=== PATIENT | male | born 1970 | race Hispanic/Latino ===

== ENCOUNTER 2018-04-16 03:55 | Observation (INO) | payer SELFPAY ==
[2018-04-16] MEDS ORDERED: Lidocaine Viscous Sol 2% 15 ml UD Cup ONE ×2 (04:37→05:49)
[2018-04-16 04:47] LABS: Bilirubin Negative (Negative); Blood, Urine Large (Negative); Glucose, Urine (Dipstick) >=1000 mg/dL (Negative); Leukocyte Negative (Negative); Nitrite Negative (Negative); Protein, Urine (Dipstick) 100 mg/dL (Neg-Trace); Specific Gravity, Urine 1.025 (1.005-1.030); Urobilinogen 0.2 mg/dL (0.2-1.0)
[2018-04-16] MEDS ORDERED: Morphine 4 MG/ML VIAL ONE ×2 (04:56→05:42)
[2018-04-16 05:05] LABS: Clarity Turbid (Clear)
[2018-04-16 05:11] LABS: Bacteria/HPF Rare-Few HPF (None Seen); RBC/HPF GREATER THAN 50-TNTC HPF (0-3); Squamous Epithelial 0-3 HPF (0-3); WBC/HPF 0-3 HPF (0-3)
[2018-04-16 05:25] LABS: #Basophils 0.1 thou/uL (0.0-0.2); #Eosinphils 0.2 thou/uL (0.0-0.7); #Lymphocytes 2.2 thou/uL (1.20-3.40); #Monocytes 0.8 thou/uL (0.11-0.59); #Neutrophils 8.5 thou/uL (1.40-6.50); %Basophils 0.5 % (0.0-1.0); %Eosinophils 1.3 % (0.0-10.0); %Lymphocytes 18.8 % (21.0-51.0); %Monocytes 7.1 % (0.0-10.0); %Neutrophils 72.4 % (42.0-75.0); Hemoglobin 15.4 g/dL (14.0-18.0); Mean Corpuscular HGB CONC 34.4 g/dL (32.0-36.0); Mean Corpuscular Hemoglobin 28.3 pg (27.0-31.0); Mean Corpuscular Volume 82.3 fL (78.0-98.0); Platelet Count 226 thou/uL (130-400); RBC Distribution Width 11.8 % (11.5-14.5); Red Blood Cell (RBC) Count 5.46 mill/uL (4.70-6.10); White Blood Cell (WBC) Count 11.8 thou/uL (4.8-10.8)
[2018-04-16 05:29] LABS: PTT 26.8 SEC (22.9-36.1); Prothrombin Time 13.5 SEC (12.0-14.7)
[2018-04-16] MEDS ORDERED: Ondansetron PF 4 MG/2 ML Vial ONE (05:42)
[2018-04-16 05:44] LABS: ALT (SGPT) 36 U/L (8-55); AST (SGOT) 14 U/L (5-34); Albumin 3.9 g/dL (3.5-5.0); Alkaline Phosphatase 113 U/L (40-150); Anion Gap 16 mmol/L (10-20); BUN (Urea Nitrogen) 11 mg/dL (8.9-20.6); Bilirubin, Total 0.9 mg/dL (0.2-1.2); Calc. Creatinine Clearance 0 mL/min (70-130); Calcium 9.1 mg/dL (7.8-10.44); Carbon Dioxide 24 mmol/L (22-29); Chloride 99 mmol/L (98-107); Estimated GFR-MDRD 77; Globulin 3.4 g/dL (2.4-3.5); Glucose 392 mg/dL (70-105); Potassium 3.6 mmol/L (3.5-5.1); Protein, Total 7.3 g/dL (6.0-8.3); Sodium 135 mmol/L (136-145)
[2018-04-16] MEDS ORDERED: Mag-Al 1200 mg/1200 mg/30 ML UDCUP ONE (05:49)
[2018-04-16] MEDS ORDERED: Milk Of Magnesia 30 ML UDCUP PO PRN (07:16)
[2018-04-16] MEDS ORDERED: diphenhydrAMINE 50 MG in Sodium Chloride 0.9% 50 ML IVPB PRN (07:16)
[2018-04-16] MEDS ORDERED: Bisacodyl 10 MG SUPP PR PRN (07:16)
[2018-04-16] MEDS ORDERED: Metoclopramide HCl 10 MG/2 ML VIAL IVP PRN (07:16)
[2018-04-16] MEDS ORDERED: Acetaminophen 500 MG TAB PO PRN (07:16)
[2018-04-16] MEDS ORDERED: HumaLOG 300 UNITS/3 ML VIAL SC PRN (07:18)
[2018-04-16] MEDS ORDERED: Dextrose 5% in Water 1,000 ML IV PRN (07:18)
[2018-04-16] MEDS ORDERED: Dextrose 50% Abboject 50 ML SYRINGE SLOW IVP PRN (07:18)
[2018-04-16] MEDS ORDERED: Ondansetron PF 4 MG/2 ML Vial IVP PRN (08:19)
[2018-04-16] MEDS ORDERED: Ondansetron ODT 4 MG TAB SL PRN (08:19)
[2018-04-16] MEDS ORDERED: Morphine 2 MG/ML SYRINGE SLOW IVP PRN (08:21)
[2018-04-16 08:44] VITALS: BMI 34.1
[2018-04-16] MEDS: B & O 30 MG SUPP PR PRN ×2 (08:50→14:50)
[2018-04-16] MEDS: Heparin 5,000 UNITS/ML VIAL SC SCH ×3 (08:53→20:15)
[2018-04-16] MEDS: Tamsulosin HCl 0.4 MG CAP PO SCH (08:53)
[2018-04-16] MEDS: Famotidine/PF 20 mg/2ml Vial SLOW IVP SCH ×2 (08:53→20:15)
[2018-04-16] MEDS: Docusate 100 MG CAP PO SCH ×2 (08:54→20:14)
[2018-04-16] MEDS: Finasteride 5 MG TAB PO SCH (08:54)
--- NOTE | 2018-04-16 09:18 | HP ---
DATE OF SERVICE: 04/16/2018 HISTORY OF PRESENT ILLNESS: The patient is a 48-year-old male who was in his otherwise usual state of health who woke up at 3 in the morning, was unable to void except a very small amount of red urine. He had this 7 years ago in a similar fashion and was seen by urologist and had cystoscopy and he was just told it was from the bladder, but he has never had trouble with it again. The ER placed a catheter and initially was concerned it wasn't draining. They placed another. At some point they documented 910mL urine out and hand irrigated his bladder for clot. Normally, he has frequency q.4h, and nocturia x1 to 2. He denies any lower urinary tract symptoms to include hesitancy, incomplete emptying, straining, but does admit to urgency if he has to hold it. Otherwise, he has never had urinary tract infections, stones or leakage of urine. PAST MEDICAL HISTORY: Allergy induced asthma, although he likely also has diabetes. PAST SURGICAL HISTORY: L2-3 fusion and appendectomy. MEDICATIONS: None except he uses inhaler periodically. Last time he used it was last month. ALLERGIES: None. SOCIAL HISTORY: He has a 2 pack a day history x12 years, but quit in 2013. He does not drink or use drugs. He lives at home with his partner. 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 He exercises via his work. REVIEW OF SYSTEMS: Reveals he had a colonoscopy in 2002 after a 31-year-old friend of his from colon cancer and that was normal. REVIEW OF SYSTEMS: He has no chest pain, no shortness of breath, no cough. No numbness or tingling. No fever, chills, nausea or vomiting. No diarrhea or constipation. He denies any trauma or significant straining recently other than with cheering for a football team. FAMILY HISTORY: Significant for mother, brother, and dad having diabetes. His dad actually at 49 of complications of diabetes. Mother is alive and otherwise okay. No history of cancer in either of them. He has not been screened for prostate cancer with a PSA nor GUS that he is aware. PHYSICAL EXAMINATION: GENERAL: He is comfortable in the bed. VITAL SIGNS: T-max 99.3. He was hypertensive 189/123 with a heart rate of 103 when he came in. Then, his last blood pressure was 137/79 with a heart rate of 84. Neck: He had no obvious JVD. HEENT: No scleral icterus. SKIN: He had multiple tattoos noted. He had no diaphoresis. CARDIOVASCULAR: Regular rate and rhythm. No murmurs, gallops or rubs. RESPIRATORY: Lungs are clear to auscultation bilaterally. ABDOMEN: Soft, nondistended, nontender with normoactive bowel sounds. EXTREMITIES: No lower extremity edema. GENITOURINARY: Testes were descended bilaterally without masses. Phallus was circumcised with a small amount of excess foreskin covering the theodore but not the glans. This is normally how it is for him. He has a 3-way catheter, secured with a piece of tape and the third port not even plugged nor hooked up to CBI. At this point, I attempted hand irrigation and it just resulted in significant spasm and discomfort to the patient. I took down the balloon to some degree as it seemingly had 30 mL and I left it with about 15mL. I was still unable to get any significant clot as I think they had successfully already removed all of the clot in the ER as the catheter had been draining only pink-tinged urine withOUT CBI when I walked in. At this point, I hooked it up to CBI just to make sure, and it had a slow drip going. It was clear. LABORATORY DATA: Reveal a normal CBC, BUN and creatinine 11 and 1.03, glucose of 392, which the ER did not communicate to me. Urinalysis with 0-3 WBCs, too numerous to count RBCs, rare bacteria and 0-3 squamous cells. There is no upper tract imaging. ASSESSMENT AND PLAN: We have a 48-year-old male, probably with undiagnosed diabetes that will need follow up regarding this and we will consult primary care if he does indeed have diabetes. He was admitted with gross hematuria. He seems to have had his clot cleared, but does deserve upper tract imaging. We will continue with CBI for the next couple hours, but can anticipate stopping it. Hopefully once off, we can get the catheter out. We will check further glucoses and a hemoglobin A1c as well as another H&H. I ordered a CT scan to check his upper tracts. MARIO
[2018-04-16] MEDS ORDERED: ISOVUE-370 76%-LOCM 1 ML ONE (10:41)
--- NOTE | 2018-04-16 10:50 | CT ---
CT ABDOMEN AND PELVIS WITH AND WITHOUT CONTRAST: HISTORY: Assess function. Hematuria. COMPARISON: None. FINDINGS: There are some atelectatic changes right lung base. No pericardial effusion. On noncontrast portion of the examination, there is no nephroureterolithiasis or hydroureteral nephro sis. No secondary evidence of a recently passed stone. There is what appears to be a focal area of ectopic cortex in the renal pelvis. No abnormal enhancing renal mass. On the delayed phase of contrast, there are no filling defects in the renal calyces, pelvi, nor urete rs. The urinary bladder posterior wall does not have an abnormal filling defect. Morris catheter is in good position. No retroperitoneal adenopathy. Aortoiliac contour is nonaneurys mal. No dilated loops of large or small bowel. Normal proximal small bowel rotation. Mild fatty atrophy of the pancreatic body. Soft tissue granuloma of the right flank. Moderate degenerative disk space disease lower lumbar spin e. IMPRESSION: 1. No nephroureterolithiasis or hydroureteral nephrosis. No secondary evidence of recently passed s tone. 2. No findings to explain the patient's hematuria. POS: [facility]
[2018-04-16 11:26] LABS: Hemoglobin 14.2 g/dL (14.0-18.0)
[2018-04-16 11:28] LABS: Hemoglobin A1c 15.3 % (4.0-6.0)
[2018-04-16] MEDS ORDERED: Insulin Regular 300 UNITS/3 ML VIAL SC PRN (12:38)
[2018-04-16] MEDS ORDERED: Insulin NPH/Reg Insulin Hm 300 UNITS/3 ML VIAL SC SCH ×3 (13:45→17:00)
[2018-04-16] MEDS: metFORMIN 500 MG TAB PO SCH (17:05)
[2018-04-16] MEDS: Insulin Regular 300 UNITS/3 ML VIAL SC PRN (17:06)
--- NOTE | 2018-04-16 20:18 | CON-2 ---
DATE OF CONSULTATION: 04/16/2018 CONSULTING PHYSICIAN: Magali Perera. NEUROLOGY ATTENDING: Dr. Ryan Roldan. HISTORY OF PRESENT ILLNESS: Patient is a 48-year-old male who presented to the ED early this morning with acute onset of hematuria around 3: 00 a.m. He is being worked up by Dr. Perera for hematuria causes. On initial lab evaluation, he was found to have blood glucose of 392. Since then blood sugars are really have been 384-324. He reports recent vision changes, increased thirst, polyuria, urgency and frequency. He has no known PCP and has last seen a physician 3 years ago in which he reports he was never told to have elevated blood sugars before. In regards to his hematuria, this has happened once before several years ago. In the ED, the clot was removed and he is currently on continuous bladder irrigation this morning with pink-tinged urine. REVIEW OF SYSTEMS: Ten point review of systems is performed and found to be negative other than those described in the HPI. PAST MEDICAL HISTORY: Asthma. PAST SURGICAL HISTORY: Back surgery, appendectomy and colonoscopy 2 years prior. FAMILY HISTORY: Significant for diabetes in brother, sister, father and mother , and hypertension in his mother. MEDICATIONS: Patient occasionally uses albuterol inhaler, mostly when the weather changes. SOCIAL HISTORY: Patient reports 2 packs per day for 12 years, but quit 4 years ago, used to drink occasionally, but has since quit. Denies drug use altogether. ALLERGIES: Denies any known allergies. PHYSICAL EXAMINATION: VITAL SIGNS: Temperature 98.0, pulse 84, respiratory rate 16, O2 sats 94% on room air, blood pressure 137/88. GENERAL: no acute distress, obese HEENT: moist MM, EOMI HEART: RRR without murmurs or extra sounds LUNGS: Clear to auscultation bilaterally : vergara in place with clear urine EXTREMITIES: no edema or cyanosis SKIN: no wounds LABORATORY DATA: As discussed in HPI, significant for chem panel with sodium 135, potassium 3.6, chloride 99, carbon dioxide 24, anion gap 16, BUN 11, creatinine 1.03 and GFR of glucose 392 and subsequent blood sugars have been 384 and 324 after 6 units of Humalog. A1c was ordered and is 15.3. Urine study shows regular urine with 100 protein, greater than 1000 glucose, trace ketones, large blood, negative nitrites, negative leukocyte esterase, and greater than 50 red blood cells. IMAGING DATA: Abdomen and pelvis CT was performed. Denies any evidence of stone. No hydro-ureterolithiasis. No secondary evidence of kidney stone but a focal area of ectopic quadrant in the right renal pelvis. ASSESSMENT AND PLAN: 1. Hematuria. We will defer workup to Urology on continuous bladder irrigation currently being managed with finasteride, heparin, and Flomax. 2. Diabetes mellitus, history consistent with type 2, new onset. Patient has no insurance. We will start insulin regimen with 70/30 insulin, given 15 units b.i.d. and aggressive sliding scale. We will titrate up from there. We will also start him on metformin 500 mg b.i.d. We will consult dietitian for education on diabetic diet and risk stratify with fasting lipid panel in the morning. Accu-Cheks and hypoglycemia protocol in place. 3. Chronic kidney disease 2 versus acute kidney injury. We will continue to monitor with BMPs. MTDD
[2018-04-17] MEDS: B & O PR PRN (00:49)
[2018-04-17 05:03] LABS: Cardiac Risk 8.6 (Less than 4.5)
[2018-04-17] MEDS: Insulin Regular 300 UNITS/3 ML VIAL SC PRN (06:31)
[2018-04-17] MEDS ORDERED: Insulin NPH/Reg Insulin Hm 300 UNITS/3 ML VIAL SC SCH (07:30)
[2018-04-17] MEDS: Tamsulosin HCl 0.4 MG CAP PO SCH (08:57)
[2018-04-17] MEDS: Finasteride 5 MG TAB PO SCH (08:57)
[2018-04-17] MEDS: metFORMIN 500 MG TAB PO SCH (08:57)
--- NOTE | 2018-04-17 08:57 | PDOC.FM ---
- Subjective Subjective: Patient doing well this am. CBI was stopped yesterday and patient is voiding without difficulty and urine is clear. He still reports suprapubic tenderness. He denies any pain with urination, hesitancy, and urgency. In regard to new diabetes diagnosis, he is motivated to make changes to his diet and be compliant with medications in hopes of getting off insulin. He denies CP, sob, n/v/c/d. - Objective MAR Reviewed: Yes Vital Signs & Weight: Vital Signs (12 hours) Temp Pulse Resp BP Pulse Ox 04/17/18 07:10 97.9 F 67 12 115/70 96 04/17/18 04:00 98.4 F 63 16 121/77 96 04/17/18 00:00 98.4 F 72 16 150/95 H 94 L Weight Weight 108 kg I&O: 04/16/18 04/17/18 04/18/18 06:59 06:59 06:59 Intake Total 450 Output Total 2400 Balance -1949 Result Diagrams: 04/16/18 11:12 04/16/18 05:05 <Arleth Gonzalez - Last Filed: 04/17/18 08:54> - Objective Vital Signs & Weight: Vital Signs (12 hours) Temp Pulse Resp BP Pulse Ox 04/17/18 11:54 98.1 F 67 14 123/63 96 Weight Weight 108 kg I&O: 04/16/18 04/17/18 04/18/18 06:59 06:59 06:59 Intake Total 450 Output Total 2400 Balance -1949 Result Diagrams: 04/16/18 11:12 04/17/18 03:29 <Ryan Roldan - Last Filed: 04/17/18 22:21> Phys Exam - Physical Examination Constitutional: NAD HEENT: moist MMs Respiratory: no wheezing, no rales, no rhonchi, clear to auscultation bilateral Cardiovascular: RRR, no significant murmur Gastrointestinal: soft suprapubic tenderness, no rebound or guarding Musculoskeletal: no edema Neurological: moves all 4 limbs Psychiatric: A&O x 3 <Arleth Gonzalez - Last Filed: 04/17/18 08:54> Dx/Plan (1) Hematuria Code(s): R31.9 - HEMATURIA, UNSPECIFIED Status: Acute (2) Diabetes mellitus Code(s): E11.9 - TYPE 2 DIABETES MELLITUS WITHOUT COMPLICATIONS Status: Acute (3) Hyperlipidemia Code(s): E78.5 - HYPERLIPIDEMIA, UNSPECIFIED Status: Acute - Plan Plan: Hematuria - unk cause, CBI discontinued. Urine clear this am. - CTabd/pelvis unremarkable - Await recs from primary team on continued workup from Urology standpoint New Onset Type 2 Diabetes Mellitus - sugars remain high although improved from initial BS 390, most recent 240's - increase 70/30 to 25units BID and continue aggressive SSI to allow for titration - consult cardiology fellow for diet education - consult CM for resources for f/u with uninsured status Hyperlipidemia - ASCVD risk: 11.4% - start Crestor 20mg qHS - discussed weight loss and exercise. CKD2 vs SOPHIA - repeat BMP pending. Dispo: pending urologic workup. <Arleth Gonzalez - Last Filed: 04/17/18 08:54> Attending Addendum - Attending Addendum Date/Time: 04/17/18 2221 I personally evaluated the patient and discussed the management with Dr. Gonzalez. I agree with and repeated the History, Examination, Assessment and Plan documented above with any addition or exceptions noted below. <Ryan Roldan - Last Filed: 04/17/18 22:21>
[2018-04-17] MEDS: Heparin 5,000 UNITS/ML VIAL SC SCH (08:58)
[2018-04-17] MEDS: Famotidine/PF 20 mg/2ml Vial SLOW IVP SCH (08:58)
[2018-04-17] MEDS: Docusate 100 MG CAP PO SCH (08:58)
[2018-04-17] MEDS ORDERED: cefTRIAXone\\ROCEPHIN 2 GM in Sodium Chloride 0.9% 100 ML IVPB SCH (09:00)
[2018-04-17 09:41] LABS: Anion Gap 12 mmol/L (10-20); BUN (Urea Nitrogen) 14 mg/dL (8.9-20.6); Calc. Creatinine Clearance 150 mL/min (70-130); Calcium 8.7 mg/dL (7.8-10.44); Carbon Dioxide 28 mmol/L (22-29); Chloride 99 mmol/L (98-107); Estimated GFR-MDRD 87; Glucose 254 mg/dL (70-105); Potassium 3.7 mmol/L (3.5-5.1); Sodium 135 mmol/L (136-145)
--- NOTE | 2018-04-17 10:14 | DIS ---
DATE OF ADMISSION: 04/16/2018 DATE OF DISCHARGE: 04/17/2018 ADMISSION DIAGNOSES: Gross hematuria and clot retention. DISCHARGE DIAGNOSES: Gross hematuria and clot retention and new diagnosis of diabetes. HISTORY OF PRESENT ILLNESS: The patient is a 48-year-old male who had clot retention all of a sudden , which was similar to an episode 7 years ago. He had a 3-way catheter, but did not need much irriga tion once the clot was removed. This was removed and he was able to void without difficulty. His ur ine was yellow by the time of discharge. I started tamsulosin and finasteride and we will send him h ome on these for now, but he does need to follow up in the office for cystoscopy. We reviewed this i n detail. We reviewed how Family Medicine has started medication for his diabetes and they can follow up with kae im as an outpatient and we will wait until they instruct him on his medications for discharge, but ot herwise the patient is safe to be discharged to home.
[2018-04-17 11:55] VITALS: BP 123/63; TEMP 98.1
[2018-04-17] MEDS ORDERED: Rosuvastatin 20 MG TAB PO SCH (21:00)
== END 2018-04-17 15:39 | disposition home or self-care (01) ==
LOC: ERS 03:55 → MERGE 07:04 → SURG A 07:04
PROVIDERS: ADMIT Urology; ATTEND Urology
DX: R31.0 Gross hematuria (principal); E11.9 Type 2 diabetes mellitus without complications; R35.0 Frequency of micturition; R39.11 Hesitancy of micturition; E78.5 Hyperlipidemia, unspecified; J45.909 Unspecified asthma, uncomplicated; Z87.891 Personal history of nicotine dependence; Z98.1 Arthrodesis status
CPT/HCPCS: 36415; 36416; 51703; 74178; 80048; 80053; 80061; 81003; 81015; 83036; 85025; 85610; 85730; 96365; 96374; 96375; 96376; G0378; J0696; J1644; J1815; J2270; J2405; J7050; S0028

== ENCOUNTER 2018-05-20 09:54 | Observation (INO) | payer SELFPAY ==
[2018-05-20 10:19] LABS: Bilirubin Negative (Negative); Clarity Opaque (Clear); Glucose, Urine (Dipstick) Negative (Negative); Nitrite Negative (Negative); Protein, Urine (Dipstick) > or equal to 300 mg/dL (Neg-Trace); Specific Gravity, Urine 1.025 (1.005-1.030); Urobilinogen 0.2 mg/dL (0.2-1.0); pH, Urine 7.5 (5.0-9.0)
[2018-05-20 10:20] LABS: Leukocyte Unable to Interpret (Negative)
[2018-05-20 10:21] LABS: Blood, Urine Large (Negative)
[2018-05-20 10:22] LABS: RBC/HPF GREATER THAN 50-TNTC HPF (0-3)
[2018-05-20 10:47] LABS: #Basophils 0.1 thou/uL (0.0-0.2); #Eosinphils 0.1 thou/uL (0.0-0.7); #Lymphocytes 1.2 thou/uL (1.20-3.40); #Monocytes 0.4 thou/uL (0.11-0.59); #Neutrophils 6.3 thou/uL (1.40-6.50); %Basophils 0.6 % (0.0-1.0); %Lymphocytes 15.2 % (21.0-51.0); %Monocytes 5.3 % (0.0-10.0); %Neutrophils 77.9 % (42.0-75.0); Hemoglobin 15.6 g/dL (14.0-18.0); Mean Corpuscular HGB CONC 35.8 g/dL (32.0-36.0); Mean Corpuscular Hemoglobin 29.7 pg (27.0-31.0); Mean Corpuscular Volume 83.1 fL (78.0-98.0); Mean Platelet Volume 7.1 fL (7.4-10.4); Platelet Count 233 thou/uL (130-400); RBC Distribution Width 12.5 % (11.5-14.5); Red Blood Cell (RBC) Count 5.24 mill/uL (4.70-6.10); White Blood Cell (WBC) Count 8.1 thou/uL (4.8-10.8)
[2018-05-20 11:00] LABS: ALT (SGPT) 20 U/L (8-55); AST (SGOT) 19 U/L (5-34); Albumin 4.4 g/dL (3.5-5.0); Alkaline Phosphatase 101 U/L (40-150); Anion Gap 14 mmol/L (10-20); BUN (Urea Nitrogen) 10 mg/dL (8.9-20.6); Bilirubin, Total 0.7 mg/dL (0.2-1.2); Calc. Creatinine Clearance 0 mL/min (70-130); Calcium 9.5 mg/dL (7.8-10.44); Carbon Dioxide 24 mmol/L (22-29); Chloride 105 mmol/L (98-107); Estimated GFR-MDRD Greater than 90; Globulin 3.9 g/dL (2.4-3.5); Glucose 112 mg/dL (70-105); Potassium 3.7 mmol/L (3.5-5.1); Protein, Total 8.3 g/dL (6.0-8.3); Sodium 139 mmol/L (136-145)
[2018-05-20] MEDS ORDERED: Morphine 4 MG/ML VIAL ONE ×2 (11:12→13:31)
[2018-05-20] MEDS ORDERED: cefTRIAXone\\ROCEPHIN 1 GM VIAL ONE (13:43)
[2018-05-20] MEDS ORDERED: Ondansetron PF 4 MG/2 ML Vial IVP PRN ×2 (16:30→17:41)
[2018-05-20] MEDS ORDERED: Morphine 4 MG/ML VIAL SLOW IVP PRN (16:30)
[2018-05-20] MEDS ORDERED: Ondansetron ODT 4 MG TAB SL PRN ×2 (16:30→17:41)
[2018-05-20 16:53] VITALS: BMI 36.2
[2018-05-20] MEDS ORDERED: Morphine 2 MG/ML SYRINGE SLOW IVP PRN (17:36)
[2018-05-20] MEDS ORDERED: Acetaminophen 325 MG TAB PO PRN (17:37)
[2018-05-20] MEDS ORDERED: Dextrose 5% in Water 1,000 ML IV PRN (18:26)
[2018-05-20] MEDS ORDERED: Dextrose 50% Abboject 50 ML SYRINGE SLOW IVP PRN (18:26)
[2018-05-20] MEDS ORDERED: Insulin Regular 300 UNITS/3 ML VIAL SC PRN ×2 (18:26)
[2018-05-20] MEDS: Famotidine 20 MG TAB PO SCH (20:40)
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
[2018-05-20] MEDS ORDERED: Atorvastatin Calcium 40 MG TAB PO SCH (21:00)
[2018-05-21 05:07] LABS: #Lymphocytes 1.9 thou/uL (1.20-3.40); #Monocytes 0.7 thou/uL (0.11-0.59); #Neutrophils 4.2 thou/uL (1.40-6.50); %Basophils 0.1 % (0.0-1.0); %Eosinophils 0.7 % (0.0-10.0); %Lymphocytes 27.7 % (21.0-51.0); %Monocytes 10.5 % (0.0-10.0); Mean Corpuscular HGB CONC 34.4 g/dL (32.0-36.0); Mean Corpuscular Hemoglobin 28.7 pg (27.0-31.0); Mean Corpuscular Volume 83.3 fL (78.0-98.0); Mean Platelet Volume 6.8 fL (7.4-10.4); Platelet Count 201 thou/uL (130-400); RBC Distribution Width 12.7 % (11.5-14.5); Red Blood Cell (RBC) Count 4.52 mill/uL (4.70-6.10)
[2018-05-21 05:29] LABS: ALT (SGPT) 17 U/L (8-55); AST (SGOT) 13 U/L (5-34); Albumin 3.6 g/dL (3.5-5.0); Alkaline Phosphatase 77 U/L (40-150); Anion Gap 11 mmol/L (10-20); BUN (Urea Nitrogen) 13 mg/dL (8.9-20.6); Bilirubin, Total 0.5 mg/dL (0.2-1.2); Calc. Creatinine Clearance 178 mL/min (70-130); Calcium 8.7 mg/dL (7.8-10.44); Carbon Dioxide 26 mmol/L (22-29); Chloride 103 mmol/L (98-107); Estimated GFR-MDRD Greater than 90; Globulin 3.2 g/dL (2.4-3.5); Glucose 92 mg/dL (70-105); Potassium 3.5 mmol/L (3.5-5.1); Protein, Total 6.8 g/dL (6.0-8.3); Sodium 136 mmol/L (136-145)
[2018-05-21] MEDS ORDERED: Lisinopril 10 MG TAB PO SCH (09:00)
[2018-05-21] MEDS ORDERED: Tamsulosin HCl 0.4 MG CAP PO SCH (09:00)
[2018-05-21] MEDS ORDERED: Finasteride 5 MG TAB PO SCH (09:00)
[2018-05-21] MEDS: Insulin NPH/Reg Insulin Hm 300 UNITS/3 ML VIAL SC SCH ×2 (09:28→17:38)
[2018-05-21] MEDS: Famotidine 20 MG TAB PO SCH (09:30)
[2018-05-21] MEDS ORDERED: cefTRIAXone\\ROCEPHIN 2 GM in Sodium Chloride 0.9% 100 ML IVPB SCH (13:00)
--- NOTE | 2018-05-21 14:59 | CON ---
DATE OF CONSULTATION: 05/21/2018 Consultation was requested for hematuria with concern for retention. HISTORY OF PRESENT ILLNESS: The patient is a 48-year-old male who actually admitted a month ago for this same similar episode; however, last time he actually had close to a liter in his bladder, but by the time I saw him with his 3-way catheter not hooked up to any irrigant, he was already draining yellow urine. This time around, he reports having ran out of his medicines and not been able to get refills, which does not make sense as my office had attempted to ensure refills and a few days later, started having gross hematuria with inability to void and a fever of 102. When the catheter was placed in the ER, they only documented about 100 coming out, but it was bloody and then ultimately switched over to a 3-way, I assume because of hematuria concerns, but again by the time I was notified that the patient was here and admitted with his 3-way of the urine was already yellow, so in my opinion for both of these episodes, I am not sure the patient benefitted from a 3-way or irrigation, nor admission from Urologic standpoint. On his visit last time, he did get diagnosed with new onset diabetes, so that was helpful to have him inhouse and learn education regarding this. This time around, the sugars are under much better control. PAST MEDICAL HISTORY: Allergy-induced asthma, diabetes diagnosed in April 2018. Hypertension, high cholesterol. PAST SURGICAL HISTORY: L2-3 fusion and appendectomy. MEDICATIONS: He is supposed to be on finasteride, tamsulosin which he have not been taking recently. He is also on, 1. Glipizide. 2. Lisinopril. 3. Atorvastatin. 4. Humulin. 5. Metformin. ALLERGIES: NONE. SOCIAL HISTORY: Two pack a day history for 12 years, but quit in 2013. He does not drink or use drugs. He lives at home with his partner. He is self-employed and does remodeling work. He exercises with work but more recently since his diabetes diagnosis, he has been working to walk more and has lost 4 pounds. REVIEW OF SYSTEMS: He had a colonoscopy in 2002 after a close friend from colon cancer at age 32, that was normal. He has no chest pain, shortness of breath, or cough. He has no nausea, vomiting, diarrhea, or constipation. He did have a fever yesterday, but otherwise feels okay now. He had significant pain and difficulty with urination yesterday, but has none of that, currently with the indwelling catheter. FAMILY HISTORY: Significant for mother, brother, and dad all having diabetes. Dad at 49 with complications from this. Mother is alive and otherwise healthy. There is no cancer in either parent. He has not been screened for prostate cancer. PHYSICAL EXAMINATION: GENERAL: He is lying comfortably on the bed. He is alert and oriented, and appropriate. HEENT: He has no obvious JVD. He has no scleral icterus. CARDIOVASCULAR: He has regular rate and rhythm. No murmurs, gallops, or rubs. LUNGS: Clear to auscultation bilaterally. ABDOMEN: Soft, nondistended, nontender with normoactive bowel sounds. : Testes are descended bilaterally without masses. Phallus had this catheter in place, draining orange urine without the CBI on. EXTREMITIES: He had no lower extremity edema. LABORATORY DATA: Laboratory evaluation reveals BUN and creatinine of 13 and 0.83. H and H has gone down from 15.6 to 13.0 and 43.5 to 37.7, but otherwise unremarkable. Urinalysis was unable to be documented microscopically given the blood so I suspect that actually this is not a clot, but culture from that is already showing concern for E. coli. ASSESSMENT: We have a 48-year-old male with gross hematuria and presumed infection at this time with a similar episode a month ago without infection and more significant retention, already on tamsulosin and finasteride, but ran out. We will make sure he continues these. I gave him a dose of Rocephin here inhouse. I have held his CBI and will see if the catheter can be removed and if he voids without difficulty, then he can be discharged. I have written a prescription for Bactrim to continue for 7 days. I will ensure that he has 3 months and refills of the tamsulosin and finasteride. He should continue all his other medications. He is already set up for cystoscopy in my office. I told him he could move this up if he could afford to do sooner. Job ID: [id number] [facility]
[2018-05-21 16:06] VITALS: BP 116/73; TEMP 98.5
--- NOTE | 2018-05-21 19:18 | DIS ---
DATE OF ADMISSION: 05/20/2018 DATE OF DISCHARGE: 05/21/2018 PRIMARY CARE PHYSICIAN: None. CONSULTANTS: Dr. Perera with Urology. PROCEDURES: The patient had a urinary catheter placed with irrigation, which was discontinued today. HOSPITAL COURSE: Mr. Us is a very pleasant 48-year-old male, who presented to the emergency room on 05/20/2018 for urinary retention, which he reports that he started at 7 o'clock that morning. He reports that he had begun experiencing hematuria 3 days ago. He was admitted to the hospital 1 month ago for similar symptoms. At that time, he was also found to be hyperglycemic and started with diabetic medication. He reports that he is compliant and generally feels better. At that time, he had passed several clots through his urethra and required some irrigation. He was seen by Urology and placed on Flomax. He was scheduled for a visit with a urologist as an outpatient with plans for cystoscopy, but reports that he did not have the money to do that and did not follow up as scheduled. He reports that current symptoms started with urinary incontinence 3 days ago, then that subsided. He was able to control his bladder, but he did start to pass clots and bright red blood. Yesterday morning when he got up and went to urinate, he was unable to, and when he was unable to after several attempts, he reported to the emergency room. He was given a catheter and irrigated. Urinalysis was conducted with the urine culture, this showed some growth of E coli. Dr. Perera was able to see him today. I discontinued the irrigation from his bladder, and I requested that the catheter be discontinued and ordered Rocephin for him IV piggyback and then requested Bactrim DS to be given as an outpatient as he left prescription. The patient's catheter was discontinued. He was subsequently able to void 200 mL. Bladder scan showed no residual, so he was discharged home. He has a followup appointment with Dr. Perera in July. DISCHARGE DIAGNOSES: 1. Urinary retention and hematuria, resolved. 2. Diabetes. 3. Urinary tract infection. REVIEW OF SYSTEMS: The patient was seen prior to discharge and reports some residual mild lower abdominal discomfort. Denies any pain. It is nontender on exam. Denies any fever, chills, cough, shortness of breath, chest pain. All other systems were reviewed and are negative unless mentioned above in the hospital course. PHYSICAL EXAMINATION: GENERAL: The patient appears well nourished, in no acute distress. VITAL SIGNS: Temperature 98.5, pulse is 63, respirations are 20, pulse ox is 94% on room air, blood pressure 116/73. HEENT: Head is atraumatic, normocephalic. Eyes; eyelids are normal to inspection. Pupils are equally round, reactive to light. Extraocular muscles are intact. ENT; mouth exam is normal. Mucous membranes are moist. NECK: Normal range of motion. Trachea is midline. No cervical adenopathy. No tenderness. CHEST: No respiratory distress. Breath sounds are clear. CARDIOVASCULAR: Heart rate is regular rate and rhythm. Heart sounds are normal. ABDOMEN: Male. Nontender on palpation. Bowel sounds are heard. BACK: Normal inspection. Normal range of motion. No tenderness. EXTREMITIES: Upper extremities, normal inspection. Normal range of motion. Motor strength is normal. Sensation is intact. Radial pulses are equal bilateral. Lower extremities, normal range of motion. Normal inspection. Motor strength is normal. Sensation is intact. Posterior tibial pulses are equal bilaterally. Pedal pulses are equal bilaterally. No edema is noted. NEURO: The patient is oriented to person, place, and time. Speech is normal. SKIN: Normal, dry, normal in color. PSYCH: Normal affect. ALLERGIES: NO KNOWN DRUG ALLERGIES. HOME MEDICATIONS: Will be restarted, which includes; 1. Lipitor 40 mg p.o. at bedtime. 2. Glipizide 2.5 mg p.o. q.a.m. 3. Lisinopril 10 mg p.o. daily. 4. Proscar 5 mg p.o. daily. 5. NPH Humulin 70/30, 25 units subcu b.i.d. 6. Metformin 500 mg p.o. b.i.d. 7. Flomax 0.4 mg p.o. daily. Added on this visit is; 1. Bactrim 1 tab p.o. b.i.d. x20. CONDITION: Stable. DISPOSITION: The patient will be discharged home. DISCHARGE INSTRUCTION: The patient is to establish primary care within the next week and to see Dr. Perera as scheduled in July. Job ID: [id number]
== END 2018-05-21 18:06 | disposition home or self-care (01) ==
LOC: ERS 09:54 → 2SW 16:22
PROVIDERS: ADMIT Internal Medicine Infectious Disease; ATTEND Internal Medicine Infectious Disease
DX: N39.0 Urinary tract infection, site not specified (principal); R31.9 Hematuria, unspecified; E11.9 Type 2 diabetes mellitus without complications; E78.5 Hyperlipidemia, unspecified; F17.220 Nicotine dependence, chewing tobacco, uncomplicated; Z79.4 Long term (current) use of insulin; Z79.899 Other long term (current) drug therapy
CPT/HCPCS: 36415; 36416; 51702; 80053; 81003; 81015; 85025; 87077; 87086; 87186; 96365; 96375; 96376; G0378; J0696; J2270; J7050

== ENCOUNTER 2019-03-13 07:49 | Emergency (ER) | payer SELFPAY ==
[2019-03-13] MEDS ORDERED: Dexamethasone 4 MG TAB ONE (08:18)
[2019-03-13] MEDS ORDERED: Ketorolac Tromethamine 60 MG/2 ML VIAL ONE (08:18)
[2019-03-13] MEDS ORDERED: Bicillin LA 1.2 MILLION UNITS/2 ML SYRINGE ONE (08:18)
== END 2019-03-13 08:56 | disposition home or self-care (01) ==
LOC: ERS 07:49
DX: J02.0 Streptococcal pharyngitis (principal); E11.9 Type 2 diabetes mellitus without complications; I10 Essential (primary) hypertension; F17.220 Nicotine dependence, chewing tobacco, uncomplicated; Z79.4 Long term (current) use of insulin; Z79.899 Other long term (current) drug therapy
CPT/HCPCS: 96372; 99283; J0561; J1885; J8540

== ENCOUNTER 2019-04-16 16:01 | Emergency (ER) | payer SELFPAY | END 2019-04-16 16:29 | disposition home or self-care (01) | LOC: ERS 16:01 | DX: J03.90 Acute tonsillitis, unspecified (principal); E11.9 Type 2 diabetes mellitus without complications; I10 Essential (primary) hypertension; F17.220 Nicotine dependence, chewing tobacco, uncomplicated; Z79.899 Other long term (current) drug therapy; Z79.4 Long term (current) use of insulin ==